=== PATIENT | female | born 1970 | race Two or more races ===

== ENCOUNTER 2020-07-22 20:57 | Emergency (ER) | payer OTHER, SELFPAY ==
[2020-07-22] MEDS ORDERED: LORazepam 2 MG/ML SDV IVPUSH ONE ×2 (21:34→21:49)
[2020-07-22] MEDS ORDERED: Ondansetron 4 MG/2 ML SDV IVPUSH ONE (21:34)
[2020-07-22] MEDS ORDERED: Sodium Chloride 0.9% 1,000 ML IV SCH (21:45)
[2020-07-22] MEDS ORDERED: Alum Hydrox/Mag Hydrox/Simeth 30 ML, Lidocaine 2% 15 ML PO ONE ×2 (21:49)
--- NOTE | 2020-07-22 22:07 | EDM.PDOC ---
ED HPI GENERAL MEDICAL PROBLEM - General Chief Complaint: Chest Pain Stated Complaint: abdominal pain Time Seen by Provider: 07/22/20 21:50 Source of Information: Reports: Patient History Limitations: Reports: No Limitations - History of Present Illness INITIAL COMMENTS - FREE TEXT/NARRATIVE: Patient is a 49-year-old female who presents to the emergency department with complaints of extreme, intermittent epigastric pain with 2 episodes of vomiting. She was discharged from this emergency department a short time ago. While here she received Dilaudid. She was feeling well on discharge, however states when she got home the symptoms developed. She states that the pain comes in waves. At the time of exam, she was not having pain. Describes it as "pain in the pit of her stomach ". She states she had a similar occurrence when she took codeine at 1 time, however she has been able to take it a number times after this without difficulties. She did receive a dose of Dilaudid for pain on her previous visit in the ER and seemed to tolerate it well prior to discharge. She denies any chest pain, however states that she has had some intermittent palpitations. She denies any shortness of breath. She denies any cardiac history. Chest Pain Score (Numeric/FACES): 10 - Related Data Allergies Allergy/AdvReac Type Severity Reaction Status Date / Time codeine Allergy Anaphylactic Verified 07/22/20 21:18 Shock hydromorphone [From Dilaudid] Allergy Abdominal Verified 07/22/20 22:45 Pain Home Meds: Home Meds Acetaminophen [Tylenol] 975 mg PO Q6H PRN tablet 10/12/19 [Rx] Docusate Sodium [Colace] 100 mg PO BID cap 10/12/19 [Rx] Ibuprofen [Motrin] 600 mg PO Q6H PRN tablet 10/12/19 [Rx] Cyclobenzaprine [Flexeril] 10 mg PO TID PRN #20 tablet 10/13/19 [Rx] Past Medical History HEENT History: Reports: Impaired Vision, Other (See Below) Other HEENT History: wears glasses Cardiovascular History: Reports: [place] Respiratory History: Reports: None Genitourinary History: Reports: None [employer]Y [employer]ER History: Reports: , Other (See Below) Other [employer]Y [employer] History: amenorrhea, pelvic pain, uterine leiomyoma, tubal, still born Musculoskeletal History: Reports: None Neurological History: Reports: None Psychiatric History: Reports: None Endocrine/Metabolic History: Reports: None Hematologic History: Reports: Anemia Immunologic History: Reports: None Oncologic (Cancer) History: Reports: None Dermatologic History: Reports: None - Past Surgical History Head Surgeries/Procedures: Reports: None Cardiovascular Surgical History: Reports: None Respiratory Surgical History: Reports: None GI Surgical History: Reports: Appendectomy, Cholecystectomy, Hernia Repair/Other Female Surgical History: Reports: Section Endocrine Surgical History: Reports: None Neurological Surgical History: Reports: None Musculoskeletal Surgical History: Reports: None Oncologic Surgical History: Reports: None Dermatological Surgical History: Reports: None Social & Family History - Family History Family Medical History: Noncontributory - Tobacco Use Smoking Status *Q: Never Smoker - Caffeine Use Caffeine Use: Reports: Coffee - Recreational Drug Use Recreational Drug Use: No ED ROS GENERAL - Review of Systems Review Of Systems: Comprehensive ROS is negative, except as noted in HPI. ED EXAM, GI/ABD - Physical Exam Exam: See Below Exam Limited By: No Limitations General Appearance: Alert, Anxious, Mild Distress Respiratory/Chest: No Respiratory Distress, Lungs Clear, Normal Breath Sounds, No Accessory Muscle Use, Chest Non-Tender Cardiovascular: Normal Peripheral Pulses, Regular Rate, Rhythm, No Edema, No Gallop, No JVD, No Murmur, No Rub GI/Abdominal Exam: Normal Bowel Sounds, Soft, No Organomegaly, No Distention, No Abnormal Bruit, No Mass, Tender (Epigastric) Neurological: Alert, Oriented, CN II-XII Intact, Normal Cognition, Normal Gait, Normal Reflexes, No Motor/Sensory Deficits Psychiatric: Anxious Skin Exam: Warm, Dry, Intact, Normal Color, No Rash EKG INTERPRETATION EKG Date: 07/22/20 Time: 22:15 Rhythm: NSR Rate (Beats/Min): 78 [place]: Normal P-Wave: Present QRS: Normal ST-T: Normal QT: Prolonged (minimally) Comparison: NA - No Prior EKG Course - Vital Signs Last Recorded V/S: Last Vital Signs Temp 96.1 F L 07/22/20 21:18 Pulse 69 07/22/20 21:18 Resp 16 07/22/20 21:18 BP 156/102 H 07/22/20 21:18 Pulse Ox 99 07/22/20 21:18 - Orders/Labs/Meds Labs: Laboratory Tests 07/22/20 Range/Units 21:57 Troponin I < 0.017 (0.00-0.056) ng/mL Meds: Medications Discontinued Medications Generic Name Dose Route Start Last Admin Trade Name Lisandra PRN Reason Stop Dose Admin Al Hydroxide/Mg Hydroxide 30 0 ml 07/22/20 21:49 07/22/20 22:00 ml/ Lidocaine HCl 15 ml PO 07/22/20 21:50 45 ml ONETIME ONE Administration Dicyclomine HCl 20 mg 07/22/20 22:13 07/22/20 22:33 Bentyl PO 07/22/20 22:14 20 mg ONETIME ONE Administration Sodium Chloride 1,000 mls @ 999 mls/hr 07/22/20 21:45 07/22/20 22:00 Normal Saline IV 999 mls/hr ASDIRECTED PATITO Administration Lorazepam 0.5 mg 07/22/20 21:34 Ativan IVPUSH 07/22/20 21:35 ONETIME ONE Lorazepam 0.25 mg 07/22/20 21:49 07/22/20 22:00 Ativan IVPUSH 07/22/20 21:50 0.25 mg ONETIME ONE Administration Ondansetron HCl 4 mg 07/22/20 21:34 07/22/20 22:00 Zofran IVPUSH 07/22/20 21:35 4 mg ONETIME ONE Administration - Re-Assessments/Exams Free Text/Narrative Re-Assessment/Exam: Patient is a 49-year-old female who returns to the emergency department with complaints of epigastric pain "in the pit of her stomach "after receiving a dose of Dilaudid while being seen previously in the ER. She denies any chest pain or shortness of breath. Initial triage complaint was for chest pain, however she is describing is epigastric pain. She did have one episode of significant epigastric pain upon initial arrival to ER, however pain did resolve shortly thereafter.. Nonetheless, I have ordered a EKG, chest 2 view x-ray, and troponin. Other labs were completed on her previous visit to the ER and were found to be normal.. We will give her a liter of IV normal saline, Ativan 0.25 mg IV, Zofran for nausea, Bentyl for abdominal cramping and a GI cocktail. 07/22/20 22:43 Chest x-ray was found to be normal. EKG was negative for any acute abnormalities. Troponin was less than 0.017. Patient's pain is much improved. States she does still have a little bit of epigastric discomfort. We will watch her for a while longer to ensure that the pain does not return and allow her to get the full 1 L fluid bolus. 07/27/20 2330 Pt is feeling better. She has had not recurrence of abdominal pain or vomiting. We will discharge her home. Departure - Departure Time of Disposition: 23:30 Disposition: Home, Self-Care 01 Condition: Good Clinical Impression: Epigastric abdominal pain - Discharge Information *PRESCRIPTION DRUG MONITORING PROGRAM REVIEWED*: No *COPY OF PRESCRIPTION DRUG MONITORING REPORT IN PATIENT ANITA: No Instructions: Abdominal Pain, Adult, [id number] Referrals: PCP,None [Primary Care Provider] - Forms: ED Department Discharge Additional Instructions: You were seen in the emergency department after having epigastric cramps and vomiting likely due to the Dilaudid pain medication that you received in the emergency department on your previous visit. A cardiac evaluation including an EKG of your heart, a chest x-ray, and a cardiac enzyme were completed. This was found to be normal. While in the ER, you received a liter of IV fluids, Zofran for nausea, a GI cocktail to treat pain within your stomach, Ativan to relax you, and Bentyl to prevent recurrence of abdominal cramping. These did improve your symptoms. He did not have any recurrence of the intense abdominal pain that you were having previously. Recommend that you go home and rest. You may use the Naprosyn for pain that was previously prescribed as this does not generally cause any side effects similar to the Dilaudid. Return to the ER with any new or worsening symptoms of concern. Sepsis Event Note (ED) - Evaluation Sepsis Screening Result: No Definite Risk
[2020-07-22] MEDS ORDERED: Dicyclomine 10 MG Cap PO ONE (22:13)
--- NOTE | 2020-07-23 06:58 | CR ---
Chest: 2 views of the chest were obtained. Comparison: No prior chest imaging is available. Heart size and mediastinum are normal. Lungs are clear with no acute parenchymal change. Bony structures are unremarkable. Impression: 1. Nothing acute is appreciated on 2 view chest x-ray. Diagnostic code #1 This report was dictated in MDT
== END 2020-07-22 23:36 | disposition home or self-care (01) ==
LOC: JD.ED 20:57
DX: R10.13 Epigastric pain (principal); R11.10 Vomiting, unspecified; Z90.49 Acquired absence of other specified parts of digestive tract; Z88.5 Allergy status to narcotic agent
CPT/HCPCS: 36415; 71046; 84484; 93005; 96361; 96374; 96375; 99285; A9270; J2060; J2405; J7030; 93010; 99283

== ENCOUNTER 2020-11-30 09:20 | Day surgery (SDC) | payer OTHER ==
[~2020-11-30 09:20] MED LIST: Lactated Ringers 1,000 ML IV SCH; Lidocaine 1%/Sod Bicarbonate in NS 8.4% 1 ML Syringe IDERM PRN; Sodium Chloride 0.9% 10 ML Syringe FLUSH PRN
--- NOTE | 2020-11-30 09:48 | PCM.PREANE ---
Preanesthetic Assessment - Procedure Proposed Procedure: EGD and Colonoscopy - Review of Systems General: No Symptoms Pulmonary: No Symptoms Cardiovascular: No Symptoms Gastrointestinal: No Symptoms Neurological: No Symptoms Other: Reports: None - Physical Assessment NPO Status Date: 11/29/20 NPO Status Time: 22:00 ASA Class: 2 Mental Status: Alert & Oriented x3 Airway Class: Mallampati = 2 Dentition: Reports: Normal Dentition, Missing Tooth/Teeth (multiple missing, none loose) Thyro-Mental Finger Breadths: 3 Mouth Opening Finger Breadths: 3 ROM/Head Extension: Full Lungs: Clear to Auscultation, Normal Respiratory Effort Cardiovascular: Regular Rate, Regular Rhythm - Allergies Allergies/Adverse Reactions: Allergies Allergy/AdvReac Type Severity Reaction Status Date / Time codeine Allergy Cannot Verified 11/26/20 10:18 Remember - Acknowledgements Anesthesia Type Planned: MAC Pt an Appropriate Candidate for the Planned Anesthesia: Yes Alternatives and Risks of Anesthesia Discussed w Pt/Guardian: Yes Pt/Guardian Understands and Agrees with Anesthesia Plan: Yes PreAnesthesia Questionnaire - Past Health History Medical/Surgical History: Denies Medical/Surgical History Genitourinary History: Reports: Renal Calculus DETECTIVE HOMICIDE SQUAD History: Reports: Neurological History: Reports: Migraines, Other (See Below) 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 - Past Surgical History Cardiovascular Surgical History: Reports: Other (See Below) Other Cardiovascular Surgeries/Procedures: cardiac arrest after a delivery GI Surgical History: Reports: Appendectomy, Cholecystectomy, Hernia, Abdominal Female Surgical History: Reports: Section, Hysterectomy - SUBSTANCE USE Tobacco Use Status *Q: Never Tobacco User Recreational Drug Use History: No - HOME MEDS Home Medications: Home Meds Acetaminophen [Tylenol] 325 mg PO Q6H PRN 10/16/19 [History] Cyclobenzaprine [Flexeril] 10 mg PO TID PRN 10/16/19 [History] Docusate Sodium [Colace] 100 mg PO BID 10/16/19 [History] Ibuprofen [Motrin] 600 mg PO Q6H PRN 10/16/19 [History] Naproxen [Naprosyn] 500 mg PO Q12HR 5 Days #10 tab 07/22/20 [Rx] - CURRENT (IN HOUSE) MEDS Current Meds: Current Medications Lactated Ringer's (Ringers, Lactated) 1,000 mls @ 125 mls/hr IV ASDIRECTED PATITO Stop: 11/30/20 23:00 Lidocaine/Sodium Bicarbonate (Buffered Lidocaine 1% In Ns 8.4%) 0.25 ml IDERM ONETIME PRN PRN Reason: Prior to IV Start Stop: 11/30/20 23:00 Sodium Chloride (Saline Flush) 10 ml FLUSH ASDIRECTED PRN PRN Reason: Keep Vein Open Stop: 11/30/20 23:00
[2020-11-30] MEDS ORDERED: Propofol 200 MG/20 ML SDV ONE (10:13)
[2020-11-30] MEDS ORDERED: fentaNYL 100 MCG/2 ML SDV ONE (10:13)
[2020-11-30] MEDS ORDERED: Lidocaine 1% 6 ML ONE (11:12)
--- NOTE | 2020-11-30 11:44 | PCM48HPAN ---
Post Anesthesia Note - EVALUATION WITHIN 48HRS OF ANESTHETIC Vital Signs in Normal Range: Yes Patient Participated in Evaluation: Yes Respiratory Function Stable: Yes Airway Patent: Yes Cardiovascular Function Stable: Yes Hydration Status Stable: Yes Pain Control Satisfactory: Yes Nausea and Vomiting Control Satisfactory: Yes Mental Status Recovered: Yes Vital Signs: Last Vital Signs Temp 97.0 F 11/30/20 11:22 Pulse 75 11/30/20 11:22 Resp 16 11/30/20 11:22 BP 91/47 L 11/30/20 11:22 Pulse Ox 100 11/30/20 11:22
--- NOTE | 2020-11-30 12:11 | PROC ---
DATE OF OPERATION: 11/30/2020 SURGEON: Shade Morton MD PREOPERATIVE DIAGNOSES: Abdominal pain and hematochezia. POSTOPERATIVE DIAGNOSES: 1. Mild gastritis. 2. Mild esophagitis. 3. Normal colon. OPERATION PERFORMED: 1. Esophagogastroduodenoscopy. 2. Colonoscopy. ANESTHESIA: Monitored anesthesia care. COMPLICATIONS: None. ESTIMATED BLOOD LOSS: Minimal. INDICATION AND CONSENT: Ms. Trung Velarde is a 49-year-old female who has been having some abdominal pain. This started about 2 years ago. The patient was evaluated, underwent a CT abdomen and pelvis, and was found to have large fibroma from her uterus. The patient also was found to have thickening of the distal ascending colon concerning for colonic process. The patient first underwent hysterectomy back in September 2019 and now following up to undergo a colonoscopy. We discussed risks, benefits, and alternatives, and informed consent was obtained. DESCRIPTION OF PROCEDURE: The patient was taken to the procedure room, placed in left lateral decubitus position. Monitored anesthesia care was induced. Time-out was performed. The patient was padded appropriately. A bite block was placed. We began with an EGD. Scope was inserted into the mouth into the esophagus. Proximal and mid esophagus were normal. Distal esophagus, mild esophagitis, marked by slight edema of the GE junction. This area was biopsied for pathology evaluation. Stomach was traversed. First and second portions of duodenum were visualized. These were normal. We went back to the stomach and visualized the antrum, stomach, body, and fundus. There was some granularity, especially in the antrum, then in the fundus. The antrum biopsies were taken with cold forceps as well as the fundus. Biopsies were taken with cold forceps. EBL was minimal. Of note, the biopsies from the distal esophagus were also taken with cold forceps. At this point, again we did retroflexion. There was no hiatal hernia. The cardia was normal. We went back into the stomach, suctioned all the air out and withdrew the scope, concluding this portion of the procedure. Once this was done, we turned our attention to the colonoscopy. Perianal examination was normal. Digital rectal examination was normal. Colonoscope was inserted and taken all the way to the cecum. This part of the procedure was challenging due to significant looping. The patient's position was changed to supine, which assisted with taking the colonoscope to the cecum. Appendiceal orifice was photographed as well as ileocecal valve. Prep was good. We began withdrawing the colonoscope slowly visualizing the entirety of the colonic mucosa. There were no abnormalities in the cecum, ascending colon, transverse colon, or descending colon. Sigmoid colon looked slightly more erythematous, so did the rectum. Cold forceps were taken. Biopsies were taken in the sigmoid colon as well as the rectum with cold forceps for pathologic examination. There were no polyps that were visualized. In the rectum, retroflexion was performed. There were just grade 2 nonbleeding hemorrhoids, but no other abnormalities. The scope was placed back into the rectum, air suctioned out and withdrawn marking the end of this procedure. The patient will be awoken from anesthesia, taken to the recovery room, and be allowed to go home today. DONYA /[id number]
== END 2020-11-30 12:30 | disposition home or self-care (01) ==
LOC: JD.SDS 09:20 → MERGE 09:20 → JD.SDS 12:30
PROVIDERS: ATTEND Surgery
DX: K92.1 Melena (principal); K64.9 Unspecified hemorrhoids; K29.50 Unspecified chronic gastritis without bleeding; K20.90 Esophagitis, unspecified without bleeding; A04.8 Other specified bacterial intestinal infections; Z88.5 Allergy status to narcotic agent; G43.909 Migraine, unspecified, not intractable, without status migrainosus; Z79.82 Long term (current) use of aspirin; Z79.899 Other long term (current) drug therapy; Z90.49 Acquired absence of other specified parts of digestive tract; Z98.890 Other specified postprocedural states
CPT/HCPCS: 43239; 45380; J2001; J2704; J3010; J7120; 00813

== ENCOUNTER 2022-11-04 17:52 | Emergency (ER) | payer OTHER | END 2022-11-04 19:30 | LOC: JD.ED 17:52 | DX: Z53.21 Procedure and treatment not carried out due to patient leaving prior to being seen by health care provider (principal) ==

== ENCOUNTER 2023-03-24 18:23 | Emergency (ER) | payer BC, OTHER ==
[2023-03-24] MEDS ORDERED: Loperamide 2 MG Cap PO STA (19:38)
[2023-03-24] MEDS ORDERED: Sodium Chloride 0.9% 1,000 ML IV ONE (19:38)
[2023-03-24] MEDS ORDERED: Ondansetron 4 MG/2 ML SDV IVPUSH ONE (19:38)
[2023-03-24 20:22] LABS: ESTIMATED GFR 105 mL/min (>60)
[2023-03-24 20:39] LABS: CORONAVIRUS COVID-19 NAA NEGATIVE (NEGATIVE)
[2023-03-24] MEDS ORDERED: Acetaminophen 325 MG Tab PO ONE (20:47)
[2023-03-24] MEDS ORDERED: Potassium Chloride 20 MEQ Tab.ER PO ONE (20:59)
== END 2023-03-24 21:45 | disposition home or self-care (01) ==
LOC: JD.ED 18:23
DX: A08.4 Viral intestinal infection, unspecified (principal); E83.42 Hypomagnesemia; Z88.5 Allergy status to narcotic agent; Z86.16 Personal history of COVID-19; Z20.822 Contact with and (suspected) exposure to COVID-19
CPT/HCPCS: 0241U; 36415; 80053; 83690; 83735; 85007; 85027; 86140; 96361; 96374; 99284; A9270; J2405; J7030

== ENCOUNTER 2025-10-14 19:03 | Emergency (ER) | payer BC ==
[2025-10-14] MEDS ORDERED: Ketorolac 60 MG/2 ML SDV IVPUSH STA (19:20)
[2025-10-14 20:00] LABS: BUPRENORPHINE SCREEN,URINE NEGATIVE (CUTOFF=10); METHADONE SCREEN, URINE NEGATIVE (CUTOFF=200); METHAMPHETAMINES SCREEN, URINE NEGATIVE (CUTOFF=500); OXYCODONE SCREEN,URINE NEGATIVE (CUT0FF=100); THC SCREEN,URINE 20 NG/ML NEGATIVE (CUTOFF=50)
[2025-10-14 20:03] LABS: AMPHETAMINES SCREEN, URINE NEGATIVE (CUTOFF=500)
[2025-10-14 20:18] LABS: BASOPHILS ABSOLUTE AUTO 0.0 K/mm3 (0.0-0.2); BASOPHILS PERCENT AUTO 0.4 % (0.0-1.0); EOSINOPHILS ABSOLUTE AUTO 0.1 K/mm3 (0.0-0.4); EOSINOPHILS PERCENT AUTO 1.3 % (0.0-6.0); IMMATURE GRAN ABSOLUTE AUTO 0.02 K/mm3 (0.00-0.05); IMMATURE GRAN PERCENT AUTO 0.2 % (0.0-0.4); LYMPHOCYTES ABSOLUTE AUTO 2.6 K/mm3 (1.0-4.8); LYMPHOCYTES PERCENT AUTO 28.1 % (24.0-44.0); MEAN PLATELET VOLUME 10.0 fl (9.4-12.3); MONOCYTES ABSOLUTE AUTO 0.6 K/mm3 (0.0-0.8); MONOCYTES PERCENT AUTO 6.1 % (0.0-8.0); NEUTROPHILS ABSOLUTE AUTO 5.9 K/mm3 (1.8-7.7); NEUTROPHILS PERCENT AUTO 63.9 % (41.0-71.0); NRBC ABSOLUTE 0.00 (0.00-0.02); NRBC PERCENT 0.0 % (0.0-0.2); PLATELET COUNT,PLT 244 K/mm3 (150-400); RED BLOOD CELL COUNT 4.43 M/mm3 (4.10-5.30); WHITE BLOOD CELL COUNT,WBC 9.17 K/mm3 (3.9-11.3)
[2025-10-14 20:37] LABS: A/G RATIO 0.8 (1-2); ALANINE AMINOTRANSFERASE,ALT 46 U/L (14-59); ASPARTATE AMNIOTRANSFERASE,AST 23 U/L (15-37); BILIRUBIN TOTAL 0.3 mg/dL (0.2-1.0); BLOOD UREA NITROGEN,BUN 14 mg/dL (7-18); CARBON DIOXIDE,CO2 28 mEq/L (21-32); CHLORIDE,CL 107 mEq/L (98-107); CREATINE KINASE,CK 59 U/L (26-192); CREATININE 0.9 mg/dL (0.55-1.02); ESTIMATED GFR 77 mL/min (>60); GLUCOSE RANDOM 125 mg/dL (70-99); POTASSIUM,K 4.0 mEq/L (3.5-5.1); PROTEIN TOTAL,TP 7.7 g/dl (6.4-8.2); SODIUM,NA 143 mEq/L (136-145)
== END 2025-10-14 21:57 | disposition home or self-care (01) ==
LOC: JD.ED 19:03
DX: B34.9 Viral infection, unspecified (principal); I10 Essential (primary) hypertension; E03.9 Hypothyroidism, unspecified; Z79.890 Hormone replacement therapy; Z86.16 Personal history of COVID-19; Z90.710 Acquired absence of both cervix and uterus; Z88.5 Allergy status to narcotic agent
CPT/HCPCS: 36415; 71045; 80053; 80306; 82550; 83735; 85025; 87428; 99284; A9270

== ENCOUNTER → 2025-10-15 | Day surgery (SDC) | payer BC ==
[~2025-10-15] MED LIST changes: -Lidocaine 1%/Sod Bicarbonate in NS 8.4% 1 ML Syringe IDERM PRN; +Sodium Chloride 0.9% 10 ML Syringe FLUSH SCH
== END | disposition home or self-care (01) ==
LOC: JD.SDS 08:02
PROVIDERS: ATTEND Surgery
DX: Z53.8 Procedure and treatment not carried out for other reasons (principal)